=== PATIENT | male | born 1955 | race Two or more races ===

== ENCOUNTER 2017-09-10 15:27 | Outpatient (CLI) | END 2017-09-10 16:44 | disposition home or self-care (01) ==

== ENCOUNTER 2017-09-24 14:22 | Outpatient (CLI) | END 2017-09-24 16:41 | disposition home or self-care (01) ==

== ENCOUNTER 2017-10-01 17:35 | Inpatient (IN) | END 2017-10-09 12:10 | disposition home or self-care (01) | DRG 292 ==

== ENCOUNTER 2017-12-04 14:11 | Emergency (ER) | END 2017-12-04 16:08 | disposition home or self-care (01) ==

== ENCOUNTER 2018-01-05 19:18 | Inpatient (IN) | END 2018-01-09 19:05 | disposition home or self-care (01) | DRG 674 ==

== ENCOUNTER 2018-01-14 06:13 | Day surgery (SDC) | END 2018-01-14 10:56 | disposition home or self-care (01) ==